=== PATIENT | female | born 1985 | race Caucasian/White ===

== ENCOUNTER 2016-07-13 06:39 | Day surgery (SDC) | payer BC ==
[~2016-07-13 06:39] MED LIST: Lactated Ringers 1,000 ML IV SCH; Lidocaine 1%/Sod Bicarbonate in NS 8.4% 1 ML Syringe IV PRN; Sodium Chloride 0.9% 10 ML Syringe FLUSH PRN
[2016-07-13] MEDS ORDERED: Clindamycin Phosphate 900 MG in Sodium Chloride 0.9% 100 ML IV ONE (07:00)
[2016-07-13] MEDS ORDERED: Clindamycin Phosphate 900 MG in Sodium Chloride 0.9% 100 ML IV SCH (07:00)
[2016-07-13] MEDS ORDERED: Lidocaine 1% 30 ML SDV ONE (07:17)
[2016-07-13] MEDS ORDERED: Bupivacaine 0.5% 30 ML SDV ONE (07:17)
[2016-07-13] MEDS ORDERED: Propofol 200 MG/20 ML SDV ONE ×2 (07:31→08:30)
[2016-07-13] MEDS ORDERED: Midazolam 1 MG/ML 2 ML SDV ONE (07:31)
[2016-07-13] MEDS ORDERED: Ondansetron 4 MG/2 ML SDV ONE (07:31)
[2016-07-13] MEDS ORDERED: fentaNYL 250 MCG/5 ML SDV ONE (07:32)
[2016-07-13 08:43] VITALS: BP 110/60
--- NOTE | 2016-07-13 08:43 | PCM48HPAN ---
Post Anesthesia Note - EVALUATION WITHIN 48HRS OF ANESTHETIC Vital Signs in Normal Range: Yes Patient Participated in Evaluation: Yes Respiratory Function Stable: Yes Airway Patent: Yes Cardiovascular Function Stable: Yes Hydration Status Stable: Yes Pain Control Satisfactory: Yes Nausea and Vomiting Control Satisfactory: Yes Mental Status Recovered: Yes
--- NOTE | 2016-07-13 09:11 | PCM.OPNOTE ---
- General Post-Op/Procedure Note Date of Surgery/Procedure: 07/13/16 Operative Procedure(s): Incision & Drainage, RIGHT foot Findings: foreign body reaction to previously placed bone wax. Pre Op Diagnosis: Painful/Symptomatic Foreign body reaction with abscess formation, RIGHT foot Post-Op Diagnosis: Same Anesthesia Technique: Local, MAC Primary Surgeon: Mitch Tovar II Anesthesia Provider: Stacey Gerard Pathology: aerobic, anaerobic cultures Drain/Tube Comments:: 1/2 inch Iodoform [place] packing. Complications: None Free Text/Narrative:: Patient left the OR for recovery with vital signs stable & vascular status grossly intact to digits 1-5, RIGHT foot.
--- NOTE | 2016-07-13 11:45 | OR ---
DATE OF OPERATION: 07/13/2016 SURGEON: Mitch Tovar II, DPM LOCATION: [facility]. ANESTHESIA: MAC with local block about the right foot. HEMOSTASIS: Right pneumatic ankle tourniquet 250 mmHg pressure. PREOPERATIVE DIAGNOSIS: Painful symptomatic foreign body reaction with abscess formation, right foot. POSTOPERATIVE DIAGNOSIS: Painful symptomatic foreign body reaction with abscess formation, right foot. OPERATION PERFORMED: Incision and drainage with foreign body removal and abscess evacuation, right foot. DESCRIPTION OF PROCEDURE: Upon arrival and admission to the hospital, the patient was examined and cleared for surgery by the assigned anesthesia provider. IV access was obtained in the preoperative area after which the patient was given prophylactic antibiotics consisting of 900 mg of clindamycin IV. The patient was then brought to the OR via [facility] and left on the [place] for the procedure in the supine position. The patient was given a combination of sedations and was adequately sedated before receiving 10 mL of 1:1 mixture 1% lidocaine plain and 0.5% Marcaine plain from a local infiltrative block about the right foot. Anesthesia was tested and found to be adequate. The right lower extremity was wrapped above the ankle joint with cotton Webril padding in preparation for nonsterile pneumatic ankle tourniquet, which was then draped with a sterile drape. The right lower extremity was then be prepped and draped in usual aseptic manner. Right lower extremity was then elevated, but was not exsanguinated. The right pneumatic ankle tourniquet, after few minutes of elevation was inflated to 250 mmHg pressure. The right lower extremity was placed back on operating room table in [facility], where an incision over the full-thickness ulceration where the abscess sinus tract was measured approximately 4 cm. This was a longitudinal skin incision that was carried deep down to the subcutaneous tissues. Within this area, aerobic and anaerobic specimens were taken. After this time, there was noted to be a large amount of bone wax paraffin that was evacuated from this area. The wound was then copiously lavaged with a pulse lavage system utilizing 3000 mL of normal saline. The wound was then packed with 1/2-inch iodoform Nu Gauze packing and dressings would consist of Betadine soaked Adaptic gauze, 4 x 4 gauze, Lilia, and an Maurisio wrap. Upon completion of the surgery, the right pneumatic ankle tourniquet was deflated. It was noted digits 1 through 5 in the right lower extremity became pink indicating normal vascular perfusion returned. The patient appeared to tolerate the procedure and anesthesia well, and left the OR for recovery with vital signs being stable and vascular status intact digits 1 through 5 in the right lower extremity with no apparent complications. In recovery, the patient received written and oral postop instructions and will resume taking her postoperative oral antibiotics. The patient also notifies surgeon that she has adequate amounts of pain medication at this time. The patient will ambulate with a mobilization boot from a previous surgery about her right foot that she brings with her today. Estimated blood loss for this procedures was 5 mL and considered negligible. There were no apparent obvious complications. ESTIMATED BLOOD LOSS: approximately 5ml. ESAU /[id number] ISHAN
--- NOTE | 2016-07-17 10:46 | PCM.PREANE ---
Preanesthetic Assessment - ANESTHESIA/TRANSFUSION/FAMILY HX Anesthesia/Transfusion History: Prior Anesthesia Type of Anesthesia Reaction: Reports: Unknown Family History of Anesthesia Reaction: No Intubation History: Unknown Type of Transfusion Reactions: Reports: Unknown - REVIEW OF SYSTEMS Constitutional: Reports: no symptoms INFRASTRUCTURE DIRECTOR: Reports: no symptoms Respiratory: Reports: no symptoms Cardiovascular: Reports: blood pressure problem Other: Reports: thyroid problems - PHYSICAL ASSESSMENT O2 Sat by Pulse Oximetry: 95 RR: 20 Vital Signs: Last Vital Signs Temp 36.2 C 07/13/16 08:38 Pulse 71 07/13/16 09:10 Resp 20 07/13/16 09:10 BP 110/60 07/13/16 08:38 Pulse Ox 95 07/13/16 09:10 Height: 1.52 m Weight: 97.069 kg NPO Status Date: 07/12/16 NPO Status Time: 23:45 ASA Class: 3 Mental Status: alert & oriented x3 Airway Class: Mallampati = 2 Dentition: Reports: normal dentition Thyro-Mental Finger Breadths: 3 Mouth Opening Finger Breadths: 3 ROM/Head Extension: full Respiratory Status: lungs clear to auscultation bilaterally Cardiovascular Status: regular rate & rhythm, normal S1, S2, no murmur, blood pressure WNL - ALLERGIES Allergies/Adverse Reactions: Allergies Allergy/AdvReac Type Severity Reaction Status Date / Time amoxicillin [Amoxicillin] Allergy Hives Verified 04/26/16 14:51 levofloxacin [From Levaquin] Allergy Rash Verified 07/12/16 12:38 lisinopril Allergy Rash Verified 04/26/16 14:51 Penicillins Allergy Hives Verified 04/26/16 14:51 milk AdvReac Vomiting Verified 07/09/16 11:49 - BLOOD Blood Available: No - ANESTHESIA PLAN Preop Beta Mirtha: Yes Beta Mirtha: Metoprolol Beta-Mirtha Last Dose Date: 07/13/16 Beta-Mirtha Last Dose Time: 06:30 Anesthesia Type Planned: general anesthesia - ACKNOWLEDGEMENTS Pt an appropriate candidate for the planned anesthesia: Yes Alternatives and risks of anesthesia discussed w pt/guardian: Yes Pt/Guardian understands and agree with anesthesia plan: Yes PreAnesthesia Questionnaire HEENT History: Reports: None Cardiovascular History: Reports: Cardiomyopathy, Heart Failure, SOB on exertion Respiratory History: Reports: SOB Other Respiratory History: moderate snoring Gastrointestinal History: Reports: GERD Genitourinary History: Reports: None SODA MAKER History: Reports: Musculoskeletal History: Reports: None Neurological History: Reports: None Psychiatric History: Reports: Anxiety, Depression Endocrine/Metabolic History: Reports: Obesity/BMI 30+ Other Endocrine/Metabolic History: BMI 42 - Past Surgical History HEENT Surgical History: Reports: Other (see below) Other HEENT Surgeries/Procedures: jaw surgery GI Surgical History: Reports: Cholecystectomy Female Surgical History: Reports: section, Tubal ligation Musculoskeletal Surgical History: Reports: Other (see below) Other Musculoskeletal Surgeries/Procedures:: foot surgery x6 - SUBSTANCE USE Smoking Status *Q: Current Some Day Smoker Tobacco Use Within Last Twelve Months: Cigarettes Days Per Week of Alcohol Use: 0 Recreational Drug Use History: No - HOME MEDS Home Medications: Home Meds Digoxin [Digox] 250 mcg PO DAILY 03/03/16 [History] Furosemide [Lasix] 20 mg PO ASDIRECTED 03/03/16 [History] Clindamycin HCl 300 mg PO TID 07/07/16 [History] Metoprolol Succinate [Toprol XL] 25 mg PO DAILY 07/07/16 [History] Hydrocortisone Valerate [Hydrocortisone Valerate] 15 gm TOP 07/12/16 [History] - CURRENT (IN HOUSE) MEDS Current Meds: Current Medications Discontinued Medications Bupivacaine HCl (Marcaine 0.5%) Confirm Administered Dose 30 ml .ROUTE .STK-MED ONE Stop: 07/13/16 07:18 Last Admin: 07/13/16 08:00 Dose: 15 ml Fentanyl (Sublimaze) Confirm Administered Dose 250 mcg .ROUTE .STK-MED ONE Stop: 07/13/16 07:33 Lactated Ringer's (Ringers, Lactated) 1,000 mls @ 125 mls/hr IV ASDIRECTED HARVEY Stop: 07/13/16 18:00 Clindamycin Phosphate 900 mg/ (Sodium Chloride) 106 mls @ 100 mls/hr IV ONETIME HARVEY Stop: 07/13/16 18:00 Lactated Ringer's (Ringers, Lactated) 1,000 mls @ 125 mls/hr IV ASDIRECTED HARVEY Stop: 07/13/16 23:00 Last Admin: 07/13/16 07:05 Dose: 125 mls/hr Clindamycin Phosphate 900 mg/ (Sodium Chloride) 106 mls @ 100 mls/hr IV ONETIME ONE Stop: 07/13/16 08:03 Last Admin: 07/13/16 07:45 Dose: 100 mls/hr Lidocaine HCl (Xylocaine-Mpf 1%) Confirm Administered Dose 30 ml .ROUTE .STK- MED ONE Stop: 07/13/16 07:18 Last Admin: 07/13/16 08:00 Dose: 5 ml Lidocaine/Sodium Bicarbonate (Buffered Lidocaine 1% In Ns 8.4%) 0.25 ml IV ONETIME PRN PRN Reason: Prior to IV Start Stop: 07/13/16 18:00 Lidocaine/Sodium Bicarbonate (Buffered Lidocaine 1% In Ns 8.4%) 0.25 ml IV ONETIME PRN PRN Reason: Prior to IV Start Stop: 07/13/16 18:00 Last Admin: 07/13/16 07:04 Dose: 0.25 ml Midazolam HCl (Versed 1 Mg/Ml) Confirm Administered Dose 2 mg .ROUTE .STK-MED ONE Stop: 07/13/16 07:32 Ondansetron HCl (Zofran) Confirm Administered Dose 4 mg .ROUTE .STK-MED ONE Stop: 07/13/16 07:32 Propofol (Diprivan 20 Ml) Confirm Administered Dose 200 mg .ROUTE .STK-MED ONE Stop: 07/13/16 07:32 Propofol (Diprivan 20 Ml) Confirm Administered Dose 200 mg .ROUTE .STK-MED ONE Stop: 07/13/16 08:31 Sodium Chloride (Saline Flush) 10 ml FLUSH ASDIRECTED PRN PRN Reason: Keep Vein Open Stop: 07/13/16 18:00 Sodium Chloride (Saline Flush) 10 ml FLUSH ASDIRECTED PRN PRN Reason: Keep Vein Open Stop: 07/13/16 18:00
== END 2016-07-13 09:45 | disposition home or self-care (01) ==
LOC: JD.SDS 06:39
PROVIDERS: ATTEND Podiatrist Foot & Ankle Surgery
PROC: 0J9Q0ZZ Drainage of Right Foot Subcutaneous Tissue and Fascia, Open Approach (ICD-10-PCS; principal; 2016-07-13)
DX: L02.611 Cutaneous abscess of right foot (principal); S90.851A Superficial foreign body, right foot, initial encounter
CPT/HCPCS: 28190; 87075; 87205; 93005; J2250; J3010; J7030; J7120; 00400; 87077; 87186; J2405; J2704

== ENCOUNTER 2016-12-17 11:40 | Emergency (ER) | payer BC ==
[2016-12-17 11:51] VITALS: BP 116/76
[2016-12-17] MEDS ORDERED: HYDROmorphone 0.5 MG/0.5 ML Syringe IVPUSH ONE (12:08)
[2016-12-17] MEDS ORDERED: Sodium Chloride 0.9% 10 ML Syringe FLUSH PRN (12:10)
[2016-12-17] MEDS ORDERED: Aspirin 81 MG Tab.Chew PO ONE (12:15)
--- NOTE | 2016-12-17 12:23 | EDM.PDOC ---
ED HPI GENERAL MEDICAL PROBLEM - General Chief Complaint: Chest Pain Stated Complaint: CHEST PAIN Time Seen by Provider: 12/17/16 12:00 Source of Information: Reports: Patient History Limitations: Reports: No Limitations - History of Present Illness INITIAL COMMENTS - FREE TEXT/NARRATIVE: Patient is a 31-year-old female with a history of cardiomyopathy who presents to the ED complaining of substernal chest pain. Pain is located to the superior border of the sternum just right of this sternum. Pain is worsened with palpation and taking deep breath. Pain came on abruptly approx. 4 days ago and has progressively gotten worse. Denies any trauma or recent activity that may have precipitated this discomfort. At times she is short of breath secondary to the pain. States the pain is constantly there described as a pressure sensation. She has no diaphoresis, nausea/vomiting, dizziness, pain to her arms, recent weight gain, swelling to her ankles, or any changes in medications. Again patient has a history of cardiomyopathy and is on digoxin, Lasix, and metoprolol. She is taking these medications all as prescribed. She does have chronic shortness of breath with laying flat with no new changes. Patient has no cough and denies any fever or chills. She is concerned it is related to her heart. She has no history of DVT/PE nor any symptoms concerning for DVT. Chest Pain Score (Numeric/FACES): 10 - Related Data Allergies Allergy/AdvReac Type Severity Reaction Status Date / Time amoxicillin [Amoxicillin] Allergy Hives Verified 12/17/16 11:45 levofloxacin [From Levaquin] Allergy Rash Verified 12/17/16 11:45 lisinopril Allergy Rash Verified 12/17/16 11:45 Penicillins Allergy Hives Verified 12/17/16 11:45 milk AdvReac Vomiting Verified 12/17/16 11:45 Home Meds: Home Meds Digoxin [Digox] 250 mcg PO DAILY 03/03/16 [History] Furosemide [Lasix] 20 mg PO DAILY 03/03/16 [History] Metoprolol Succinate [Toprol XL] 25 mg PO DAILY 07/07/16 [History] Hydrocortisone Valerate [Hydrocortisone Valerate] 15 gm TOP ASDIRECTED 07/12/16 [History] Acetaminophen/HYDROcodone [Daviston 325-5 MG] 1 tab PO Q6H PRN #12 tablet 12/17/16 [Rx] Past Medical History HEENT History: Reports: None Cardiovascular History: Reports: Cardiomyopathy, Heart Failure, SOB on Exertion Respiratory History: Reports: SOB Other Respiratory History: moderate snoring Gastrointestinal History: Reports: GERD Genitourinary History: Reports: None RELAY CHECKER History: Reports: Musculoskeletal History: Reports: None Neurological History: Reports: None Psychiatric History: Reports: Anxiety, Depression Endocrine/Metabolic History: Reports: Obesity/BMI 30+ Other Endocrine/Metabolic History: BMI 42 - Past Surgical History GI Surgical History: Reports: Cholecystectomy Female Surgical History: Reports: Section, Tubal Ligation Musculoskeletal Surgical History: Reports: Other (See Below) Social & Family History - Tobacco Use Smoking Status *Q: Current Every Day Smoker Years of Tobacco use: 15 Packs/Tins Daily: 0.2 Used Tobacco, but Quit: No - Caffeine Use Caffeine Use: Reports: Coffee, Soda - Alcohol Use Days Per Week of Alcohol Use: 0 - Recreational Drug Use Recreational Drug Use: No Drug Use in Last 12 Months: No ED ROS GENERAL - Review of Systems Review Of Systems: ROS reveals no pertinent complaints other than HPI. ED EXAM, GENERAL - Physical Exam Exam: See Below Exam Limited By: No Limitations General Appearance: Alert, WD/WN, No Apparent Distress Eye Exam: Bilateral Eye: PERRL Ears: Hearing Grossly Normal Nose: Normal Inspection Throat/Mouth: Normal Voice, No Airway Compromise Head: Atraumatic, Normocephalic Neck: Normal Inspection, Supple, Non-Tender, Full Range of Motion Respiratory/Chest: No Respiratory Distress, Lungs Clear, Normal Breath Sounds, No Accessory Muscle Use, Other (Pain located to the superior aspect of the sternum along the right side worse with palpation and taking deep breath. No bony abnormalities, swelling, ecchymosis present.) Cardiovascular: Normal Peripheral Pulses, Regular Rate, Rhythm, Systolic Murmur (faint) Peripheral Pulses: 2+: Radial (L), Radial (R) GI/Abdominal: Normal Bowel Sounds, Soft, Non-Tender, No Organomegaly, No Distention Back Exam: Normal Inspection Extremities: Normal Inspection, Normal Range of Motion, Non-Tender, No Pedal Edema, Normal Capillary Refill Neurological: Alert, Oriented, CN II-XII Intact, Normal Cognition, No Motor/ Sensory Deficits Psychiatric: Normal Affect, Normal Mood Skin Exam: Warm, Dry, Intact, Normal Color Course - Vital Signs Last Recorded V/S: Last Vital Signs Temp 97.9 F 12/17/16 11:47 Pulse 91 12/17/16 11:47 Resp 24 H 12/17/16 11:47 BP 116/76 12/17/16 11:47 Pulse Ox 97 12/17/16 11:47 - Orders/Labs/Meds Orders: Active Orders 24 hr Category Date Time Status EKG 12 Lead [EKG Documentation Completion] [RC] STAT Care 12/17/16 12:03 Active Peripheral IV Care [RC] . DIRECTED Care 12/17/16 12:10 Active DIGOXIN [CHEM] Stat Lab 12/17/16 13:15 Ordered Sodium Chloride 0.9% [Saline Flush] Med 12/17/16 12:10 Active 10 ml FLUSH ASDIRECTED PRN Peripheral IV Insertion Adult [OM.PC] Stat Oth 12/17/16 12:08 Ordered Medication Orders Sodium Chloride (Saline Flush) 10 ml FLUSH ASDIRECTED PRN PRN Reason: Keep Vein Open Last Admin: 12/17/16 12:26 Dose: 10 ml Labs: Laboratory Tests 12/17/16 12/17/16 12/17/16 Range/Units 12:00 12:00 12:00 WBC 11.83 H (3.98-10.04) K/mm3 RBC 5.10 (3.98-5.22) M/mm3 Hgb 15.9 H (11.2-15.7) gm/L Hct 45.2 H (34.1-44.9) % MCV 88.6 (79.4-94.8) fl MCH 31.2 (25.6-32.2) pg MCHC 35.2 (32.2-35.5) g/dl RDW Std Deviation 41.9 (36.4-46.3) fL Plt Count 356 (182-369) K/mm3 MPV 9.3 L (9.4-12.3) fl Neut % (Auto) 68.6 (34.0-71.1) % Lymph % (Auto) 23.2 (19.3-51.7) % [place] % (Auto) 6.2 (4.7-12.5) % Eos % (Auto) 1.3 (0.7-5.8) Baso % (Auto) 0.3 (0.1-1.2) % Neut # (Auto) 8.11 H (1.56-6.13) K/mm3 Lymph # (Auto) 2.75 (1.18-3.74) K/mm3 [place] # (Auto) 0.73 H (0.24-0.36) K/mm3 Eos # (Auto) 0.15 (0.04-0.36) K/mm3 Baso # (Auto) 0.04 (0.01-0.08) K/mm3 D-Dimer, Quantitative 0.32 (0.19-0.59) mg/L Sodium 138 (136-145) mEq/L Potassium 3.4 L (3.5-5.1) mEq/L Chloride 101 (98-107) mEq/L Carbon Dioxide 25 (21-32) mEq/L Anion Gap 15.4 H (5-15) BUN 6 L (7-18) mg/dL Creatinine 1.0 (0.55-1.02) mg/dL Est Cr Clr Drug Dosing 58.55 mL/min Estimated GFR (MDRD) > 60 (>60) mL/min BUN/Creatinine Ratio 6.0 L (14-18) Glucose 120 H (74-106) mg/dL Calcium 9.9 (8.5-10.1) mg/dL Total Bilirubin 0.5 (0.2-1.0) mg/dL AST 48 H (15-37) U/L ALT 93 H (14-59) U/L Alkaline Phosphatase 85 (46-116) U/L Troponin I < 0.017 (0.00-0.056) ng/mL C-Reactive Protein < 0.2 (<1.0) mg/dL Wpb-A-[id number] Pept 16 (0-125) pg/mL Total Protein 7.7 (6.4-8.2) g/dl Albumin 4.1 (3.4-5.0) g/dl Globulin 3.6 gm/dL Albumin/Globulin Ratio 1.1 (1-2) Meds: Medications Generic Name Dose Route Start Last Admin Trade Name Freq PRN Reason Stop Dose Admin Sodium Chloride 10 ml 12/17/16 12:10 12/17/16 12:26 Saline Flush FLUSH 10 ml ASDIRECTED PRN Administration Keep Vein Open Discontinued Medications Generic Name Dose Route Start Last Admin Trade Name Rafia PRN Reason Stop Dose Admin Aspirin 324 mg 12/17/16 12:15 12/17/16 12:26 Aspirin PO 12/17/16 12:16 324 mg ONETIME ONE Administration Hydromorphone HCl 0.5 mg 12/17/16 12:08 12/17/16 12:26 Dilaudid IVPUSH 12/17/16 12:09 0.5 mg ONETIME ONE Administration - Re-Assessments/Exams Free Text/Narrative Re-Assessment/Exam: IV established. Ordered aspirin 324 mg by mouth and also Dilaudid 0.5 mg IVP. Initial labs and studies include CBC, chem 14, CRP, BNP, d-dimer, and troponin along with chest x-ray one view. EKG revealed a sinus rhythm with a normal P axis, rate of 89, with HI interval 208. No acute ST changes noted. 12/17/16 13:06 Chest x-ray did not reveal any acute abnormalities. Labs reviewed : White blood cell count 11.83, hemoglobin 15.9, platelets 356, d-dimer within normal limits, sodium 138, potassium 3.4, creatinine 1.0, glucose 120, AST 48, AST 93, troponin less than 0.017, CRP less than 0.2, and BNP is 16. 12/17/16 13:16 Reassessment, patients pain has decreased. Reviewed labs and studies with patient. she is ready be discharged home. Discharged home with instructions as documented. Digoxin level has been ordered. If any abnormalities she'll be notified. Departure - Departure Time of Disposition: 13:17 Disposition: Home, Self-Care 01 Condition: Good Clinical Impression: Atypical chest pain, Chest wall pain, Non-cardiac chest pain Prescriptions: Acetaminophen/HYDROcodone [Daviston 325-5 MG] 1 tab PO Q6H PRN #12 tablet PRN Reason: Pain (Severe 7-10) Instructions: Nonspecific Chest Pain, [id number] Referrals: Kianna Cain [employer] WORK[employer] [Primary Care Provider] - Forms: ED Department Discharge Additional Instructions: As discussed pain etiology most likely muscular skeletal thus symptomatic treatment is appropriate. Including refrain from any activities that cause worsening pain, Aleve 1-2 tabs twice daily for pain, Tylenol 650 mg every 6 hours as needed for pain. For severe pain take Daviston one tab every 6 hours as needed. Refrain from taking Tylenol and Daviston together. No driving today nor while taking the Daviston due to sedative side effects. Follow-up with PCP and the next 3-5 days as needed for reevaluation. Return to ED for any new or worsening symptoms. - My Orders Last 24 Hours: My Active Orders 12/17/16 12:03 EKG 12 Lead [EKG Documentation Completion] [RC] STAT 12/17/16 12:08 Peripheral IV Insertion Adult [OM.PC] Stat 12/17/16 12:10 Peripheral IV Care [RC] . DIRECTED Sodium Chloride 0.9% [Saline Flush] 10 ml FLUSH ASDIRECTED PRN 12/17/16 13:15 DIGOXIN [CHEM] Stat - Assessment/Plan Last 24 Hours: My Active Orders 12/17/16 12:03 EKG 12 Lead [EKG Documentation Completion] [RC] STAT 12/17/16 12:08 Peripheral IV Insertion Adult [OM.PC] Stat 12/17/16 12:10 Peripheral IV Care [RC] . DIRECTED Sodium Chloride 0.9% [Saline Flush] 10 ml FLUSH ASDIRECTED PRN 12/17/16 13:15 DIGOXIN [CHEM] Stat
--- NOTE | 2016-12-17 12:37 | CR ---
Chest: Frontal view of the chest was obtained utilizing portable technique. Comparison: Previous chest x-ray of 11/05/13. Heart size and mediastinum are normal. Lungs are clear. Bony structures are grossly intact. Surgical clips are seen within the upper abdomen presumably from prior cholecystectomy. Impression: 1. Nothing acute is identified on portable chest x-ray. Diagnostic code #2
== END 2016-12-17 13:37 | disposition home or self-care (01) ==
LOC: JD.ED 11:40
DX: R07.89 Other chest pain (principal); I50.9 Heart failure, unspecified; K21.9 Gastro-esophageal reflux disease without esophagitis; F32.9 Major depressive disorder, single episode, unspecified; F41.9 Anxiety disorder, unspecified; E66.9 Obesity, unspecified; F17.210 Nicotine dependence, cigarettes, uncomplicated; Z88.0 Allergy status to penicillin; Z88.1 Allergy status to other antibiotic agents; Z68.41 Body mass index [BMI] 40.0-44.9, adult; Z90.49 Acquired absence of other specified parts of digestive tract; Z91.011 Allergy to milk products; Z79.899 Other long term (current) drug therapy
CPT/HCPCS: 36415; 71010; 80053; 80162; 83880; 84484; 85025; 85379; 86140; 93005; 96374; 99285; A9270; J1170; J7050; 99284

== ENCOUNTER → 2019-04-28 | Day surgery (SDC) | payer BC ==
[~2019-04-28] MED LIST changes: +Acetaminophen/oxyCODONE 325-5 MG Tab PO PRN; +Albuterol 0.083% 2.5 MG/3 ML Neb Soln NEB ONE; +Albuterol 0.083% 2.5 MG/3 ML Neb Soln NEB SCH; +Albuterol 6.7 GM Inhaler INH ONE; +Bupivacaine 0.5% 30 ML SDV ONE; +Dexamethasone 4 MG/ML 5 ML MDV ONE; +HYDROmorphone 0.5 MG/0.5 ML Syringe IVPUSH PRN; +HYDROmorphone 0.5 MG/0.5 ML Syringe ONE; +Ibuprofen 600 MG Tab PO PRN; +Ketamine 500 mg/10 ML MDV ONE; +Ketorolac 15 MG/ML SDV ONE; +Ketorolac 30 MG/ML SDV IVPUSH SCH; +Lactated Ringers 1,000 ML ONE; +Lidocaine 1% 4 ML ONE; +Lidocaine 1% 6 ML ONE; +Lidocaine 1% with EPINEPHrine 1:100,000 20 ML MDV ONE; +Lidocaine 1%/Sod Bicarbonate in NS 8.4% 1 ML Syringe IDERM PRN; -Lidocaine 1%/Sod Bicarbonate in NS 8.4% 1 ML Syringe IV PRN; +Midazolam 1 MG/ML 2 ML SDV ONE; +Neostigmine Methylsulfate 1 MG/ML 5 ML Syringe ONE; +Ondansetron 4 MG/2 ML SDV IVPUSH PRN; +Ondansetron 4 MG/2 ML SDV ONE; +Propofol 200 MG/20 ML SDV ONE; +Rocuronium 100 MG/10 ML MDV ONE; +Sodium Chloride 0.9% 50 ML SDV ONE; +ceFAZolin 1 GM Vial ONE; +fentaNYL 100 MCG/2 ML SDV IVPUSH PRN; +fentaNYL 250 MCG/5 ML SDV ONE
--- NOTE | 2019-04-28 08:44 | PCM.PREANE ---
Preanesthetic Assessment - Procedure Proposed Procedure: lavh with bs - Anesthesia/Transfusion/Family Hx Anesthesia History: Prior Anesthesia Without Reaction Family History of Anesthesia Reaction: No Transfusion History: No Prior Transfusion(s) Type of Transfusion Reactions: Reports: Unknown - Review of Systems General: No Symptoms Pulmonary: No Symptoms Cardiovascular: No Symptoms Gastrointestinal: Abdominal Pain, Diarrhea (always because no gall bladder) Neurological: No Symptoms Other: Reports: None - Physical Assessment NPO Status Date: 04/27/19 (2329) NPO Status Time: 23:30 Vital Signs: 118/69 85 96% 16 98.1 Height: 5 ft Weight: 87.2 kg ASA Class: 2 Mental Status: Alert & Oriented x3 Airway Class: Mallampati = 1 Dentition: Reports: Dentures (top and bottom) Thyro-Mental Finger Breadths: 3 Mouth Opening Finger Breadths: 3 ROM/Head Extension: Full Lungs: Clear to Auscultation, Normal Respiratory Effort Cardiovascular: Regular Rate, Regular Rhythm - Allergies Allergies/Adverse Reactions: Allergies Allergy/AdvReac Type Severity Reaction Status Date / Time amoxicillin [Amoxicillin] Allergy Hives Verified 04/27/19 17:33 levofloxacin [From Levaquin] Allergy Rash Verified 04/27/19 17:33 lisinopril Allergy Rash Verified 04/27/19 17:33 Penicillins Allergy Hives Verified 04/27/19 17:33 milk AdvReac Vomiting Verified 04/27/19 17:33 - Blood Blood Available: No - Anesthesia Plan Beta Mirtha: Metoprolol Med Last Dose Date: 04/28/19 Med Last Dose Time: 07:30 - Acknowledgements Anesthesia Type Planned: General Anesthesia Pt an Appropriate Candidate for the Planned Anesthesia: Yes Alternatives and Risks of Anesthesia Discussed w Pt/Guardian: Yes Pt/Guardian Understands and Agrees with Anesthesia Plan: Yes PreAnesthesia Questionnaire HEENT History: Reports: Other (See Below) Other HEENT History: dentures Cardiovascular History: Reports: Cardiomyopathy (post ), Heart Failure, SOB on Exertion Respiratory History: Reports: SOB Other Respiratory History: moderate snoring Gastrointestinal History: Reports: GERD Genitourinary History: Reports: None CLINICAL EVALUATOR History: Reports: Other OB/BYN History: pelvic pain, abnormal uterine bleeding Musculoskeletal History: Reports: Other (See Below) Other Musculoskeletal History: bone cyst Neurological History: Reports: Migraines (none in a long time) Psychiatric History: Reports: Anxiety, Depression Endocrine/Metabolic History: Reports: Obesity/BMI 30+ Other Endocrine/Metabolic History: BMI 42 Hematologic History: Reports: None Immunologic History: Reports: None Oncologic (Cancer) History: Reports: None Dermatologic History: Reports: Psoriasis Other Dermatologic History: toenail removal - Past Surgical History Head Surgeries/Procedures: Reports: None HEENT Surgical History: Reports: Other (See Below) Other HEENT Surgeries/Procedures: jaw surgery Cardiovascular Surgical History: Reports: None Respiratory Surgical History: Reports: None GI Surgical History: Reports: Cholecystectomy Female Surgical History: Reports: Section, Tubal Ligation Neurological Surgical History: Reports: None Musculoskeletal Surgical History: Reports: Other (See Below) Other Musculoskeletal Surgeries/Procedures:: foot surgery x6, mortons neuroma excision - SUBSTANCE USE Smoking Status *Q: Current Every Day Smoker Tobacco Use Within Last Twelve Months: Cigarettes Second Hand Smoke Exposure: Yes Days Per Week of Alcohol Use: 1 Recreational Drug Use History: No - HOME MEDS Home Medications: Home Meds Digoxin [Digox] 250 mcg PO DAILY 03/03/16 [History] Furosemide [Lasix] 20 mg PO DAILY 03/03/16 [History] Fenofibrate Nanocrystallized [Tricor] 145 mg PO DAILY 04/27/19 [History] Metoprolol Succinate [Toprol Xl] 50 mg PO DAILY 04/27/19 [History] - CURRENT (IN HOUSE) MEDS Current Meds: Current Medications Albuterol (Proventil Neb Soln) 2.5 mg NEB ONETIME HARVEY Stop: 04/28/19 16:00 Lactated Ringer's (Ringers, Lactated) 1,000 mls @ 125 mls/hr IV ASDIRECTED HARVEY Stop: 04/28/19 23:00 Lidocaine/Sodium Bicarbonate (Buffered Lidocaine 1% In Ns 8.4%) 0.25 ml IDERM ONETIME PRN PRN Reason: Prior to IV Start Stop: 04/28/19 18:00 Sodium Chloride (Saline Flush) 10 ml FLUSH ASDIRECTED PRN PRN Reason: Keep Vein Open Stop: 04/28/19 18:00
--- NOTE | 2019-04-28 12:16 | PCM.OPNOTE ---
- General Post-Op/Procedure Note Date of Surgery/Procedure: 04/28/19 Operative Procedure(s): Laparoscopic assisted total vaginal hysterectomy with bilateral salpingectomy Findings: Patient is status post tubal ligation. The appendix looked normal as did the liver edge. Uterus was normal in size. Ovaries appeared functional bilaterally. No significant scarring noted. Pre Op Diagnosis: 1. Abnormal uterine bleeding. 2. Pelvic pain Post-Op Diagnosis: Same Anesthesia Technique: General ET Tube, Local Other Anesthesia Type: Marcaine 0.5% local, lidocaine quarter percent with epinephrinelocal Primary Surgeon: Paul Powell Secondary Surgeon: Charles Taylor Anesthesia Provider: Nahomi Marroquin Administrative Secretary: Raegan Berrios Reason Administrative Secretary Was Necessary: Retraction, assistance, patient safety, quality of care Pathology: Uterus and segments of fallopian tubes in same container. Fluid Replacement, Intraop: 1,400 Output, Urine Amount: 150 EBL in mLs: 75 Drain/Tube Comments:: Indwelling bladder catheter during surgery only. Removed at the end of the case. Complications: None Condition: Good Free Text/Narrative:: Surgery duration: 52 minutes The patient was taken to the operating room placed in supine position on the operating table. She received 2 g of Ancef preoperatively for infection prophylaxis. She had signed consent previously. After adequate anesthesia patient was placed in a dorsal lithotomy position. It should be noted she had sequential compression stockings in place for DVT prophylaxis. A uterine manipulator was placed as was an latex free indwelling bladder catheter. This was done after adequate prepping and draping. The patient was placed in supine position and four laparoscopic port sites were developed. Marcaine 0.5% approximately 3-5 mL was injected at each site. Verres needle was placed and pneumoperitoneum was achieved with 3 L of CO2. Infraumbilical and 2 lateral port sites were developed. Under laparoscopic guidance the upper portion of the hysterectomy was performed. The right round ligament was elevated and crossclamped using the 7digital computerized cautery device. The round ligament was taken down to the broad ligament. At this time attention was turned to the left side and the same process was followed with uterus being taken down in a similar fashion. The distal ends of fallopian tubes were removed and sent with the specimen. Broad ligament was taken down to the area of the uterine vasculature. Uterine vasculature was developed in the usual fashion using the cautery system. Both uterine arteries were identified and developed. Vaginal approach was then undertaken. The patient was placed in the dorsal lithotomy position and a weighted speculum was placed in the vagina. The cervix was injected with lidocaine quarter percent with epinephrine 20 mL total. A full circumference incision was made through the epithelium around the cervix. Posterior cul-de-sac was entered without problems. The left uterosacral ligament and then the right uterosacral were taken down using the Enseal vessel closure system. The cardinal ligament and what remained of the uterine vascular vessels and cervical branches of the vessels were managed with the Enseal vessel closure system on each side. Anterior cul-de-sac was then entered and the remaining portion of broad ligament on the right side and a small portion of broad ligament remaining on the left side were then developed in the usual fashion. Uterus was then removed. At this point the uterus was completely removed and sent as specimen. The vaginal cuff was then run with a locked running suture of 0 Monocryl from the 2 o'clock position to the 10 o'clock position. The vagina was closed with a running locked suture of 0 Monocryl. Hemostasis was confirmed this time and no bleeding was noted. Laparoscopy was then performed to ensure hemostasis. Pneumoperitoneum was reestablished and the laparoscope was placed. The pelvis was found to be hemostatically intact. There was no evidence of any bowel adhesion to the vaginal cuff area noted. The sleeves were removed under direct visualization and the upper sleeve was removed after reversal of the pneumoperitoneum. Each of these sites were closed with a single interrupted suture of 3-0 Monocryl. They were further approximated with Dermabond skin glue. At this point the patient was awakened from general endotracheal anesthesia. The Joe catheter had been removed by this time. She is discharged from the operating room in good condition.
--- NOTE | 2019-04-28 12:20 | PCM.POSTAN ---
POST ANESTHESIA ASSESSMENT - MENTAL STATUS Mental Status: Other (Drowsy) - VITAL SIGNS Vital Signs: Last Vital Signs Temp 36.7 C 04/28/19 08:44 Pulse 85 04/28/19 08:44 Resp 16 04/28/19 08:44 BP 118/69 04/28/19 08:44 Pulse Ox 94 L 04/28/19 09:03 1211 104/44 76 17 93% 98.8F - RESPIRATORY Respiratory Status: Respiratory Rate WNL, Airway Patent, O2 Saturation Stable, Supplemental Oxygen - CARDIOVASCULAR CV Status: Pulse Rate WNL, Blood Pressure Stable - GASTROINTESTINAL GI Status: No Symptoms - PAIN Pain Score: 0 - POST OP HYDRATION Hydration Status: Adequate & Stable
[2019-04-28 14:33] VITALS: BP 113/55; PULSE 68
--- NOTE | 2019-04-29 09:30 | PCM48HPAN ---
Post Anesthesia Note - EVALUATION WITHIN 48HRS OF ANESTHETIC Vital Signs in Normal Range: Yes Patient Participated in Evaluation: Yes Respiratory Function Stable: Yes Airway Patent: Yes Cardiovascular Function Stable: Yes Hydration Status Stable: Yes Pain Control Satisfactory: Yes Nausea and Vomiting Control Satisfactory: Yes Mental Status Recovered: Yes Vital Signs: Last Vital Signs Temp 36.7 C 04/28/19 14:30 Pulse 68 04/28/19 14:30 Resp 17 04/28/19 14:30 BP 113/55 L 04/28/19 14:30 Pulse Ox 92 L 04/28/19 14:30
== END | disposition home or self-care (01) ==
LOC: JD.SDS 08:14
PROVIDERS: ATTEND Obstetrics & Gynecology
DX: N80.0 Endometriosis of uterus (principal); N73.6 Female pelvic peritoneal adhesions (postinfective); I11.0 Hypertensive heart disease with heart failure; I50.9 Heart failure, unspecified; G43.909 Migraine, unspecified, not intractable, without status migrainosus; F17.210 Nicotine dependence, cigarettes, uncomplicated; K21.9 Gastro-esophageal reflux disease without esophagitis; E66.9 Obesity, unspecified; Z68.41 Body mass index [BMI] 40.0-44.9, adult; Z98.51 Tubal ligation status; Z88.0 Allergy status to penicillin; Z88.1 Allergy status to other antibiotic agents; Z88.8 Allergy status to other drugs, medicaments and biological substances; Z91.011 Allergy to milk products
CPT/HCPCS: 36415; 58552; 81025; 82565; 85025; 86850; 86900; 86901; 94640; A9270; J0690; J1100; J1170; J1885; J2001; J2250; J2405; J2704; J2710; J3010; J3490; J7120; 00944

== ENCOUNTER 2020-09-26 08:30 | Emergency (ER) | payer BC ==
[2020-09-26 08:39] VITALS: PULSE 90
--- NOTE | 2020-09-26 09:52 | EDM.PDOC ---
ED HPI GENERAL MEDICAL PROBLEM - General Chief Complaint: Chest Pain Stated Complaint: CHEST PAIN AND SOB Time Seen by Provider: 09/26/20 08:42 Source of Information: Reports: Patient History Limitations: Reports: No Limitations - History of Present Illness INITIAL COMMENTS - FREE TEXT/NARRATIVE: The patient presents with chest pain, shortness of breath and leg swelling. This has been going on for about 2 days. The pain comes and goes. She has some shortness of breath at times. She has a history of cardiomyopathy. She has no fever, chills, cough, congestion, runny nose, abdominal pain, nausea and vomiting. She does not smoke. Onset: Gradual Duration: Day(s): (2) Location: Reports: Chest Quality: Reports: Sharp Severity: Moderate Improves with: Reports: None Worsens with: Reports: None Associated Symptoms: Reports: Chest Pain, Shortness of Breath. Denies: Cough, Fever/Chills, Headaches, Nausea/Vomiting - Related Data Allergies Allergy/AdvReac Type Severity Reaction Status Date / Time amoxicillin [Amoxicillin] Allergy Hives Verified 09/26/20 08:51 levofloxacin [From Levaquin] Allergy Rash Verified 09/26/20 08:51 lisinopril Allergy Rash Verified 09/26/20 08:51 Penicillins Allergy Hives Verified 09/26/20 08:51 Home Meds: Home Meds Digoxin [Digox] 250 mcg PO DAILY 03/03/16 [History] Furosemide [Lasix] 20 mg PO DAILY 03/03/16 [History] Metoprolol Succinate [Toprol Xl] 50 mg PO DAILY 04/27/19 [History] Past Medical History HEENT History: Reports: Other (See Below) Other HEENT History: dentures Cardiovascular History: Reports: Cardiomyopathy, Heart Failure, High Cho lesterol, SOB on Exertion Respiratory History: Reports: SOB Other Respiratory History: moderate snoring Gastrointestinal History: Reports: GERD Genitourinary History: Reports: None VP REVENUE CYCLE History: Reports: Other VP REVENUE CYCLE History: pelvic pain, abnormal uterine bleeding Musculoskeletal History: Reports: Other (See Below) Other Musculoskeletal History: bone cyst Neurological History: Reports: Migraines Psychiatric History: Reports: Anxiety, Depression Endocrine/Metabolic History: Reports: Obesity/BMI 30+ Other Endocrine/Metabolic History: BMI 42 Hematologic History: Reports: None Immunologic History: Reports: None Oncologic (Cancer) History: Reports: None Dermatologic History: Reports: Psoriasis Other Dermatologic History: toenail removal - Past Surgical History HEENT Surgical History: Reports: Oral Surgery, Other (See Below) Other HEENT Surgeries/Procedures: jaw surgery GI Surgical History: Reports: Cholecystectomy Female Surgical History: Reports: Section, Hysterectomy, Tubal Ligation Musculoskeletal Surgical History: Reports: Other (See Below) Other Musculoskeletal Surgeries/Procedures:: foot surgery x6, mortons neuroma excision Oncologic Surgical History: Reports: Bone Marrow Transplant Social & Family History - Tobacco Use Tobacco Use Status *Q: Current Every Day Tobacco User Years of Tobacco use: 10 Packs/Tins Daily: 0.5 - Caffeine Use Caffeine Use: Reports: Coffee, Soda - Recreational Drug Use Recreational Drug Use: No ED ROS GENERAL - Review of Systems Review Of Systems: See Below Constitutional: Reports: No Symptoms HEENT: Reports: No Symptoms Respiratory: Reports: Shortness of Breath Cardiovascular: Reports: Chest Pain, Edema Endocrine: Reports: No Symptoms GI/Abdominal: Reports: No Symptoms : Reports: No Symptoms Musculoskeletal: Reports: Other (Edema both legs) ED EXAM, GENERAL - Physical Exam Exam: See Below Exam Limited By: No Limitations General Appearance: Alert, No Apparent Distress Ears: Normal External Exam Nose: Normal Inspection Head: Atraumatic, Normocephalic Neck: Normal Inspection Respiratory/Chest: No Respiratory Distress, Lungs Clear, Normal Breath Sounds Cardiovascular: Regular Rate, Rhythm, No Edema, No Murmur GI/Abdominal: Soft, Non-Tender, No Organomegaly, No Mass Extremities: Normal Inspection Neurological: Alert, Oriented, No Motor/Sensory Deficits #1 Interpretation EKG Date: 09/26/20 Time: 08:49 Rhythm: NSR Rate (Beats/Min): 82 [place]: Normal P-Wave: Present QRS: Normal ST-T: Normal QT: Normal Course - Vital Signs Last Recorded V/S: Last Vital Signs Temp 97.0 F 09/26/20 08:35 Pulse 90 09/26/20 08:35 Resp 12 09/26/20 08:35 BP Pulse Ox 96 09/26/20 08:35 - Orders/Labs/Meds Orders: Active Orders 24 hr Category Date Time Status Cardiac Monitoring [RC] . DIRECTED Care 09/26/20 09:07 Active EKG 12 Lead [EKG Documentation Completion] [RC] STAT Care 09/26/20 08:56 Active Chest 2V [CR] Stat Exams 09/26/20 09:08 Taken PRO B-TYPE NATRIUR PEPT,BNPPRO [CHEM] Stat Lab 09/26/20 09:21 Received Labs: Laboratory Tests 09/26/20 09/26/20 09/26/20 Range/Units 09:21 09:21 09:21 WBC 11.48 H (3.98-10.04) K/mm3 RBC 5.03 (3.98-5.22) M/mm3 Hgb 16.0 H (11.2-15.7) gm/dl Hct 46.6 H (34.1-44.9) % MCV 92.6 D (79.4-94.8) fl MCH 31.8 (25.6-32.2) pg MCHC 34.3 (32.2-35.5) g/dl RDW Std Deviation 44.0 (36.4-46.3) fL Plt Count 307 (182-369) K/mm3 MPV 8.8 L (9.4-12.3) fl Neut % (Auto) 63.6 (34.0-71.1) % Lymph % (Auto) 24.1 (19.3-51.7) % [place] % (Auto) 8.5 (4.7-12.5) % Eos % (Auto) 3.0 (0.7-5.8) Baso % (Auto) 0.5 (0.1-1.2) % Neut # (Auto) 7.28 H (1.56-6.13) K/mm3 Lymph # (Auto) 2.77 (1.18-3.74) K/mm3 [place] # (Auto) 0.98 H (0.24-0.36) K/mm3 Eos # (Auto) 0.35 (0.04-0.36) K/mm3 Baso # (Auto) 0.06 (0.01-0.08) K/mm3 D-Dimer, Quantitative 0.28 (0.19-0.50) mg/L Sodium 139 (136-145) mEq/L Potassium 4.0 (3.5-5.1) mEq/L Chloride 103 (98-107) mEq/L Carbon Dioxide 25 (21-32) mEq/L Anion Gap 15.0 (5-15) BUN 10 (7-18) mg/dL Creatinine 0.8 (0.55-1.02) mg/dL Est Cr Clr Drug Dosing 71.17 mL/min Estimated GFR (MDRD) > 60 (>60) mL/min BUN/Creatinine Ratio 12.5 L (14-18) Glucose 104 H (70-99) mg/dL Calcium 8.6 (8.5-10.1) mg/dL Total Bilirubin 0.2 (0.2-1.0) mg/dL AST 21 (15-37) U/L ALT 57 (14-59) U/L Alkaline Phosphatase 81 (46-116) U/L Troponin I < 0.017 (0.00-0.056) ng/mL Total Protein 7.2 (6.4-8.2) g/dl Albumin 3.5 (3.4-5.0) g/dl Globulin 3.7 gm/dL Albumin/Globulin Ratio 1.0 (1-2) - Re-Assessments/Exams Free Text/Narrative Re-Assessment/Exam: 09/26/20 09:51 I ordered an EKG, CXR and labs. Her EKG shows a NSR with no acute changes. Her CXR looks good. 09/26/20 10:08 Her CBC and CMP look good. Her D-dimer and troponin are negative. I will discharge the patient home. Departure - Departure Time of Disposition: 10:15 Disposition: Home, Self-Care 01 Condition: Good Clinical Impression: Atypical chest pain Referrals: Sofie Fung SANDING MACHINE TENDER [Primary Care Provider] - 1 Week Forms: ED Department Discharge, ED Return to Work/School Form Additional Instructions: Try to put your legs up at the end of the day. Take tylenol or motrin for pain. Follow up with your doctor. Please return if you are worse. Sepsis Event Note (ED) - Evaluation Sepsis Screening Result: No Definite Risk - Focused Exam Vital Signs: Vital Signs Temp Pulse Resp Pulse Ox 09/26/20 08:35 97.0 F 90 12 96 - My Orders Last 24 Hours: My Active Orders 09/26/20 08:56 EKG 12 Lead [EKG Documentation Completion] [RC] STAT 09/26/20 09:07 Cardiac Monitoring [RC] . DIRECTED 09/26/20 09:08 Chest 2V [CR] Stat 09/26/20 09:21 PRO B-TYPE NATRIUR PEPT,BNPPRO [CHEM] Stat - Assessment/Plan Last 24 Hours: My Active Orders 09/26/20 08:56 EKG 12 Lead [EKG Documentation Completion] [RC] STAT 09/26/20 09:07 Cardiac Monitoring [RC] . DIRECTED 09/26/20 09:08 Chest 2V [CR] Stat 09/26/20 09:21 PRO B-TYPE NATRIUR PEPT,BNPPRO [CHEM] Stat
--- NOTE | 2020-09-26 11:03 | CR ---
Chest: PA and lateral views of the chest were obtained. Comparison: Prior chest x-ray of 12/17/16 Heart size and mediastinum are within normal limits. Lungs are clear with no acute parenchymal change. Minimal scattered disc space narrowing is seen within the spine with minimal scattered endplate osteophytes. Impression: 1. Slight degenerative change scattered within the spine. 2. Nothing acute is appreciated on 2 view chest x-ray. Diagnostic code #2
== END 2020-09-26 10:20 | disposition home or self-care (01) ==
LOC: JD.ED 08:30
DX: R07.89 Other chest pain (principal); E66.9 Obesity, unspecified; Z88.0 Allergy status to penicillin; Z88.1 Allergy status to other antibiotic agents; Z88.8 Allergy status to other drugs, medicaments and biological substances; Z68.41 Body mass index [BMI] 40.0-44.9, adult; Z72.0 Tobacco use
CPT/HCPCS: 36415; 71046; 71046-26; 80053; 83880; 84484; 85025; 85379; 93005; 93010; 99284; 99285-25

== ENCOUNTER 2022-05-22 09:37 | Emergency (ER) | payer BC ==
[2022-05-22 09:52] VITALS: BP 93/36; PULSE 77
[2022-05-22] MEDS ORDERED: Sodium Chloride 0.9% 10 ML Syringe FLUSH PRN ×2 (10:04→10:09)
[2022-05-22] MEDS ORDERED: Ondansetron 4 MG/2 ML SDV IVPUSH ONE (10:04)
[2022-05-22] MEDS ORDERED: Sodium Chloride 0.9% 1,000 ML IV STA (10:04)
[2022-05-22] MEDS ORDERED: HYDROmorphone 0.5 MG/0.5 ML Syringe IVPUSH ONE ×2 (10:06→12:19)
[2022-05-22] MEDS ORDERED: Iopamidol 612 MG/ML 100 ML Bottle IVPUSH ONE (10:09)
== END 2022-05-22 13:03 | disposition home or self-care (01) ==
LOC: JD.ED 09:37
DX: K52.9 Noninfective gastroenteritis and colitis, unspecified (principal); N83.202 Unspecified ovarian cyst, left side; E27.8 Other specified disorders of adrenal gland; E78.00 Pure hypercholesterolemia, unspecified; F17.210 Nicotine dependence, cigarettes, uncomplicated; E66.9 Obesity, unspecified; Z88.0 Allergy status to penicillin; Z91.041 Radiographic dye allergy status; Z88.1 Allergy status to other antibiotic agents; Z68.38 Body mass index [BMI] 38.0-38.9, adult
CPT/HCPCS: 36415; 74177; 80053; 81001; 83690; 84703; 85025; 96361; 96374; 96375; 96376; 99284; J1170; J2405; J3490; J7030; Q9967

== ENCOUNTER 2024-05-02 21:03 | Emergency (ER) | payer BC ==
[2024-05-02 21:19] VITALS: BP 124/66; PULSE 88
[2024-05-02] MEDS ORDERED: Sodium Chloride 0.9% 10 ML Syringe FLUSH PRN (21:26)
[2024-05-02 21:39] LABS: BASOPHILS ABSOLUTE AUTO 0.1 K/mm3 (0.0-0.2); BASOPHILS PERCENT AUTO 0.5 % (0.0-1.0); EOSINOPHILS ABSOLUTE AUTO 0.2 K/mm3 (0.0-0.4); EOSINOPHILS PERCENT AUTO 1.2 % (0.0-6.0); HEMATOCRIT 42.9 % (37.0-47.0); HEMOGLOBIN 14.7 gm/dl (12.0-16.0); IMMATURE GRAN ABSOLUTE AUTO 0.28 K/mm3 (0.00-0.05); IMMATURE GRAN PERCENT AUTO 1.5 % (0.0-0.4); LYMPHOCYTES ABSOLUTE AUTO 4.1 K/mm3 (1.0-4.8); LYMPHOCYTES PERCENT AUTO 21.3 % (24.0-44.0); MEAN CORPUSCULAR HEMOGLOBIN 32.1 pg (28.0-32.0); MEAN CORPUSCULAR HGB CONC 34.3 g/dl (32.0-36.0); MEAN CORPUSCULAR VOLUME 93.7 fl (83.0-99.0); MEAN PLATELET VOLUME 9.2 fl (9.4-12.3); MONOCYTES ABSOLUTE AUTO 1.2 K/mm3 (0.0-0.8); MONOCYTES PERCENT AUTO 6.4 % (0.0-8.0); NEUTROPHILS ABSOLUTE AUTO 13.3 K/mm3 (1.8-7.7); NEUTROPHILS PERCENT AUTO 69.1 % (41.0-71.0); PLATELET COUNT,PLT 339 K/mm3 (150-400); RED BLOOD CELL COUNT 4.58 M/mm3 (4.10-5.30); WHITE BLOOD CELL COUNT,WBC 19.24 K/mm3 (3.9-11.3)
[2024-05-02 21:50] LABS: A/G RATIO 1.2 (1-2); ALANINE AMINOTRANSFERASE,ALT 72 U/L (14-59); ALBUMIN 3.7 g/dl (3.4-5.0); ALKALINE PHOSPHATASE 44 U/L (46-116); ANION GAP 11.5 (5-15); ASPARTATE AMNIOTRANSFERASE,AST 32 U/L (15-37); BILIRUBIN TOTAL 0.2 mg/dL (0.2-1.0); BLOOD UREA NITROGEN,BUN 13 mg/dL (7-18); BUN/CREATININE RATIO 11.8 (14-18); CALCIUM 9.3 mg/dL (8.5-10.1); CARBON DIOXIDE,CO2 26 mEq/L (21-32); CHLORIDE,CL 102 mEq/L (98-107); CREATININE 1.1 mg/dL (0.55-1.02); EST CRCL DRUG DOSING (CG) 49.81 mL/min; ESTIMATED GFR 66 mL/min (>60); GLUCOSE RANDOM 107 mg/dL (70-99); LIPASE 42 U/L (16-77); POTASSIUM,K 3.5 mEq/L (3.5-5.1); PROTEIN TOTAL,TP 6.9 g/dl (6.4-8.2); SODIUM,NA 136 mEq/L (136-145)
[2024-05-02 21:55] LABS: TROPONIN I HIGH SENSITIVITY < 4 pg/mL (<=51)
== END 2024-05-03 00:27 | disposition home or self-care (01) ==
LOC: JD.ED 21:03
DX: R07.9 Chest pain, unspecified (principal); R20.2 Paresthesia of skin; E78.00 Pure hypercholesterolemia, unspecified; I50.9 Heart failure, unspecified; E66.9 Obesity, unspecified; Z79.899 Other long term (current) drug therapy; Z88.0 Allergy status to penicillin; Z88.1 Allergy status to other antibiotic agents; Z88.8 Allergy status to other drugs, medicaments and biological substances
CPT/HCPCS: 36415; 71045; 71045-26; 80053; 83690; 84484; 84703; 85025; 93005; 99285

== ENCOUNTER 2025-01-15 17:32 | Emergency (ER) | payer BC, MEDICAID ==
[2025-01-15 17:45] VITALS: BP 125/78; PULSE 92
== END 2025-01-15 20:08 | disposition home or self-care (01) ==
LOC: JD.ED 17:32
DX: M25.511 Pain in right shoulder (principal); E78.00 Pure hypercholesterolemia, unspecified; I50.9 Heart failure, unspecified; K21.9 Gastro-esophageal reflux disease without esophagitis; Z88.0 Allergy status to penicillin; Z88.8 Allergy status to other drugs, medicaments and biological substances; Z88.1 Allergy status to other antibiotic agents; Z79.899 Other long term (current) drug therapy
CPT/HCPCS: 73030; 99283; A9270